=== PATIENT | female | born 1985 | race American Indian/Alaskan Native ===

== ENCOUNTER 2017-10-16 13:32 | Emergency (ER) | payer SELFPAY ==
[2017-10-16] MEDS ORDERED: NACL 0.9% 1000 ML 1,000 ML IV ONE ×2 (13:39→15:38)
[2017-10-16 14:26] LABS: Basophils % (Auto) 0.3 % (0.0-1.8); Eosinophils % (Auto) 0.2 % (0.0-4.3); Hemoglobin 13.7 gm/dl (10.1-14.3); Lymphocytes # (Auto) 1.8 K/mm3 (1.2-5.4); Lymphocytes % (Auto) 18.4 % (13.4-35.0); Mean Corpuscular HGB Conc 35 % (30-34); Mean Corpuscular Hemoglobin 30 pg (28-32); Mean Corpuscular Volume 85 fl (79-97); Monocytes # (Auto) 0.3 K/mm3 (0.0-0.8); Monocytes % (Auto) 3.5 % (0.0-7.3); Platelet Count 190 K/mm3 (140-440); Red Blood Count 4.56 M/mm3 (3.65-5.03); Red Cell Distribution Width 12.9 % (13.2-15.2)
[2017-10-16 14:33] LABS: Alanine Aminotransferase 8 units/L (7-56); Albumin 4.3 g/dL (3.9-5); BUN/Creatinine Ratio 14; Blood Urea Nitrogen 10 mg/dL (7-17); Calcium 9.4 mg/dL (8.4-10.2); Hemolysis Index 2
[2017-10-16] MEDS ORDERED: TYLENOL PO ONE (15:39)
--- NOTE | 2017-10-16 16:08 | Emergency Department Report ---
ED HPI - General Chief complaint: Abdominal Pain Stated complaint: ABD PAIN Time Seen by Provider: 10/16/17 15:35 Source: patient Mode of arrival: Ambulatory Limitations: No Limitations - History of Present Illness Initial comments: This is a 31-year-old female nontoxic, well nourished in appearance, no acute signs of distress presents to the ED with c/o of pelvic pain x2 weeks. Patient stated that on 10/07/2017 she had 1 episode of vaginal bleeding and that is when she was diagnosed with . Patient stated every since then she developed pelvic cramping and nausea with vomiting. Patient denies any abdominal pain. Patient denies any vaginal discharge or foul odor. Patient currently in the ED denies any vaginal bleeding. Patient denies any nausea, vomiting, chest pain, shortness of breathe, fever, chills, headache, stiff neck , numbness, tingling. Patient denies any urinary symptoms. Patient denies any allergies or PMH. MD Complaint: abdominal pain (pelvic ) -: week(s) (2) Location: pelvis Radiation: none Severity: mild Severity scale (0 -10): 3 Quality: cramping Consistency: intermittent Improves with: none Worsens with: none Associated symptoms: nausea/vomiting. denies: vaginal bleeding, vaginal discharge, abdominal pain, dysuria, headache, vision changes, malaise, dysparuenia, rash, seizure, shortness of breath, syncope, weakness Vaginal bleeding: none :: Yes Pre- care: none - Related Data Previous Rx's Medication Instructions Recorded Last Taken Type Ibuprofen [Motrin] 600 mg PO Q8H PRN #30 tablet 06/06/14 Unknown Rx Penicillin Vk [Veetids TAB] 500 mg PO QID #40 tablet 06/06/14 Unknown Rx traMADol [Ultram 50 MG tab] 50 mg PO Q6HR PRN #10 tablet 06/06/14 Unknown Rx Acetaminophen 500 mg PO Q8H PRN #30 tablet 10/16/17 Unknown Rx Metoclopramide [Reglan] 10 mg PO TID PRN #60 tab 10/16/17 Unknown Rx 21/Iron Fu/Folic Acid 1 each PO DAILY #30 tablet 10/16/17 Unknown Rx [ Complete Caplet] Allergies Allergy/AdvReac Type Severity Reaction Status Date / Time No Known Allergies Allergy Verified 10/16/17 13:36 ED Review of Systems ROS: Stated complaint: ABD PAIN Other details as noted in HPI Constitutional: denies: chills, fever Eyes: denies: eye pain, eye discharge, vision change ENT: denies: ear pain, throat pain Respiratory: denies: cough, shortness of breath, wheezing Cardiovascular: denies: chest pain, palpitations Endocrine: no symptoms reported Gastrointestinal: abdominal pain (pelvic pain). denies: nausea, diarrhea Genitourinary: denies: urgency, dysuria, discharge Musculoskeletal: denies: back pain, joint swelling, arthralgia Skin: denies: rash, lesions Neurological: denies: headache, weakness, paresthesias Psychiatric: denies: anxiety, depression Hematological/Lymphatic: denies: easy bleeding, easy bruising ED Past Medical Hx - Past Medical History Previous Medical History?: No - Surgical History Past Surgical History?: No - Social History Smoking Status: Current Every Day Smoker Substance Use Type: Alcohol, Marijuana - Medications Home Medications: Home Medications Medication Instructions Recorded Confirmed Last Taken Type Ibuprofen [Motrin] 600 mg PO Q8H PRN #30 tablet 06/06/14 Unknown Rx Penicillin Vk [Veetids TAB] 500 mg PO QID #40 tablet 06/06/14 Unknown Rx traMADol [Ultram 50 MG tab] 50 mg PO Q6HR PRN #10 tablet 06/06/14 Unknown Rx Acetaminophen 500 mg PO Q8H PRN #30 tablet 10/16/17 Unknown Rx Metoclopramide [Reglan] 10 mg PO TID PRN #60 tab 10/16/17 Unknown Rx 21/Iron Fu/Folic Acid 1 each PO DAILY #30 tablet 10/16/17 Unknown Rx [ Complete Caplet] ED Physical Exam - General Limitations: No Limitations General appearance: alert, in no apparent distress - Head Head exam: Present: atraumatic, normocephalic - Eye Eye exam: Present: normal appearance Pupils: Present: normal accommodation - ENT ENT exam: Present: normal exam, mucous membranes moist - Neck Neck exam: Present: normal inspection, full ROM. Absent: tenderness, meningismus, lymphadenopathy - Respiratory Respiratory exam: Present: normal lung sounds bilaterally. Absent: respiratory distress, wheezes, rales, rhonchi, stridor, chest wall tenderness, accessory muscle use, decreased breath sounds, prolonged expiratory - Cardiovascular Cardiovascular Exam: Present: regular rate, normal rhythm, normal heart sounds. Absent: bradycardia, tachycardia, irregular rhythm, systolic murmur, diastolic murmur, rubs, gallop - GI/Abdominal GI/Abdominal exam: Present: soft, normal bowel sounds. Absent: distended, tenderness, guarding, rebound, rigid, diminished bowel sounds - Expanded GI/Abdominal Exam Expanded GI/Abdominal exam: Absent: psoas sign, obturator sign, heel tap sign, Rider's sign, Rovsing's sign, tenderness at Mcburney's Point, ascites - Extremities Exam Extremities exam: Present: normal inspection, full ROM, normal capillary refill. Absent: tenderness, joint swelling - Back Exam Back exam: Present: normal inspection, full ROM. Absent: tenderness, CVA tenderness (R), CVA tenderness (L), muscle spasm, paraspinal tenderness, vertebral tenderness, rash noted - Neurological Exam Neurological exam: Present: alert, oriented X3, normal gait - Psychiatric Psychiatric exam: Present: normal affect, normal mood - Skin Skin exam: Present: warm, dry, intact, normal color. Absent: rash ED Course Vital Signs 10/16/17 13:36 Temperature 98.4 F Pulse Rate 90 Respiratory 18 Rate Blood Pressure 93/65 O2 Sat by Pulse 100 Oximetry - Reevaluation(s) Reevaluation #1: 10/16/17 16:47 Patient is speaking in full sentences with no signs of distress noted. ED Medical Decision Making - Lab Data Result diagrams: 10/16/17 14:04 10/16/17 14:04 - Medical Decision Making This is a 31-year-old female presents with induced pelvic cramping. Patient is stable and was examined by me. Normal abdominal exam. US OB obtained and dictated by the radiologist. Quantative serum test obtained. Patient notified of the US report with no questions noted by the patient. Patient received 1L of normal saline and Reglan which patient stated symptioms of nausea and vomiting subsided. A PO challenge obtained and patient tolerated well with no nausea or vomiting noted. Labs within normal limits. Patient was referred to Follow-up with a [facility] in 3-5 days or if symptoms worsen and continue return to emergency room as soon as possible. At time of discharge, the patient does not seem toxic or ill in appearance. No acute signs of distress noted. Patient agrees to discharge treatment plan of care. No further questions noted by the patient. Critical care attestation.: If time is entered above; I have spent that time in minutes in the direct care of this critically ill patient, excluding procedure time. ED Disposition Clinical Impression: related pelvic pain in first trimester, antepartum Disposition: TO HOME OR SELFCARE Is pt being admited?: No Does the pt Need Aspirin: No Condition: Stable Instructions: (ED) Additional Instructions: Follow-up with a [facility] doctor in 3-5 days or if symptoms worsen and continue return to emergency room as soon as possible. Prescriptions: Acetaminophen 500 mg PO Q8H PRN #30 tablet PRN Reason: pain Metoclopramide [Reglan] 10 mg PO TID PRN #60 tab PRN Reason: Nausea 21/Iron Fu/Folic Acid [ Complete Caplet] 1 each PO DAILY #30 tablet Referrals: PRIMARY CAREMD [Primary Care Provider] - 3-5 Days HELENA REHMAN MD [Staff Physician] - 3-5 Days [facility] [Provider Group] - 3-5 Days [facility] [Outside] - 3-5 Days Forms: Work/School Release Form(ED)
--- NOTE | 2017-10-16 16:42 | Ultrasound Report ---
FINAL REPORT EXAM: US OB < = 14 WEEKS FETUS HISTORY: abd pain COMPARISON: None available. TECHNIQUE: Several real-time grayscale and color Doppler images were obtained. Transabdominal and transvaginal exam. FINDINGS: Uterus measures 10.6 x 5.2 x 6.6 centimeters. There is a single live IUP. Estimated gestational age 6 weeks 5 days. Estimated delivery date June 06, 2018. heart rate 131 beats per minute. The right ovary measures 4.2 x 2.2 x 3.1 centimeters. Left ovary measures 2.3 x 2.1 x 2.9 centimeters. There is vascular flow to the bilateral ovaries. Within the right ovary there is a 2.1 x 1.5 x 2.1 centimeter isoechoic avascular structure which may reflect corpus luteum. There is a 2 millimeter calcification in the left ovary. No adnexal masses are demonstrated. Trace fluid in the pelvis. Cervix is closed. IMPRESSION: Single live IUP. Estimated gestational age 6 weeks 5 days. Estimated delivery date June 06, 2018. 2.1 centimeter isoechoic avascular structure in the right ovary which may reflect corpus luteum. No adnexal masses are demonstrated.
[2017-10-16] MEDS ORDERED: REGLAN IV ONE (17:07)
[2017-10-16 18:38] VITALS: BP 146/42
== END 2017-10-16 18:37 | disposition home or self-care (01) ==
LOC: ED 13:32
DX: O26.891 Other specified pregnancy related conditions, first trimester (principal); R10.2 Pelvic and perineal pain; O99.331 Smoking (tobacco) complicating pregnancy, first trimester; F12.10 Cannabis abuse, uncomplicated; Z3A.01 Less than 8 weeks gestation of pregnancy
CPT/HCPCS: 36415; 76801; 76817; 80053; 84702; 85025; 96361; 96374; 99284; J2765; J7030

== ENCOUNTER 2018-10-14 09:32 | Emergency (ER) | payer SELFPAY ==
[2018-10-14 09:43] VITALS: BP 126/32
--- NOTE | 2018-10-14 10:17 | Emergency Department Report ---
ED Female HPI - General Chief complaint: Abdominal Pain Stated complaint: ABD PAIN Time Seen by Provider: 10/14/18 10:12 Source: patient Mode of arrival: Ambulatory Limitations: No Limitations - History of Present Illness Initial comments: Patient is 32 years old female with no significant past medical history except for ectopic . Patient presented to the ER complaining of left lower quadrant pain started 2 days ago. Patient stated that she missed her period this month. She denied any vaginal bleeding or vaginal discharge. Patient st ated that she is having dysuria and increased urinary frequency. MD Complaint: pelvic pain - Related Data Previous Rx's Medication Instructions Recorded Last Taken Type Ibuprofen [Motrin] 600 mg PO Q8H PRN #30 tablet 06/06/14 Unknown Rx Penicillin Vk [Veetids TAB] 500 mg PO QID #40 tablet 06/06/14 Unknown Rx traMADol [Ultram 50 MG tab] 50 mg PO Q6HR PRN #10 tablet 06/06/14 Unknown Rx Acetaminophen 500 mg PO Q8H PRN #30 tablet 10/16/17 Unknown Rx Metoclopramide [Reglan] 10 mg PO TID PRN #60 tab 10/16/17 Unknown Rx 21/Iron Fu/Folic Acid 1 each PO DAILY #30 tablet 10/16/17 Unknown Rx [ Complete Caplet] Allergies Allergy/AdvReac Type Severity Reaction Status Date / Time No Known Allergies Allergy Verified 10/16/17 13:36 ED Review of Systems ROS: Stated complaint: ABD PAIN Other details as noted in HPI Comment: All other systems reviewed and negative Constitutional: denies: chills, fever Respiratory: denies: cough, orthopnea, shortness of breath, SOB with exertion Cardiovascular: denies: chest pain Gastrointestinal: abdominal pain. denies: nausea, vomiting Genitourinary: dysuria, frequency Neurological: denies: headache, weakness ED Past Medical Hx - Social History Smoking Status: Current Every Day Smoker Substance Use Type: Alcohol, Marijuana - Medications Home Medications: Home Medications Medication Instructions Recorded Confirmed Last Taken Type Ibuprofen [Motrin] 600 mg PO Q8H PRN #30 tablet 06/06/14 Unknown Rx Penicillin Vk [Veetids TAB] 500 mg PO QID #40 tablet 06/06/14 Unknown Rx traMADol [Ultram 50 MG tab] 50 mg PO Q6HR PRN #10 tablet 03/12/15 Unknown Rx Acetaminophen 500 mg PO Q8H PRN #30 tablet 10/16/17 Unknown Rx Metoclopramide [Reglan] 10 mg PO TID PRN #60 tab 10/16/17 Unknown Rx 21/Iron Fu/Folic Acid 1 each PO DAILY #30 tablet 10/16/17 Unknown Rx [ Complete Caplet] ED Physical Exam - General Limitations: No Limitations General appearance: alert, in no apparent distress - Head Head exam: Present: atraumatic, normocephalic, normal inspection - ENT ENT exam: Present: normal exam, normal orophraynx - Neck Neck exam: Present: normal inspection - Respiratory Respiratory exam: Present: normal lung sounds bilaterally - Cardiovascular Cardiovascular Exam: Present: normal heart sounds - GI/Abdominal GI/Abdominal exam: Present: soft, normal bowel sounds. Absent: distended, tenderness, guarding, rebound, rigid, organomegaly, mass, bruit, pulsatile mass, hernia - Extremities Exam Extremities exam: Present: normal inspection, full ROM, normal capillary refill - Neurological Exam Neurological exam: Present: alert, oriented X3, CN II-XII intact - Skin Skin exam: Present: warm, intact, normal color ED Course Vital Signs 10/14/18 09:41 Temperature 98.3 F Pulse Rate 58 L Respiratory 16 Rate Blood Pressure 126/32 O2 Sat by Pulse 100 Oximetry ED Medical Decision Making - Lab Data Result diagrams: 10/14/18 10:07 10/14/18 10:07 - Medical Decision Making Patient is 32 years old female with no significant past medical history except for ectopic . Patient presented to the ER complaining of left lower quadrant pain started 2 days ago. Patient stated that she missed her period this month. She denied any vaginal bleeding or vaginal discharge. Patient stated that she is having dysuria and increased urinary frequency. Patient labs reviewed and is unremarkable. test is negative. Patient is in no acute distress. Abdomen is soft nontender. No evidence of acute abdomen. Patient advised to follow-up with her primary care physician in the next 2-3 days and to return to the ER if symptoms are not improved. Critical care attestation.: If time is entered above; I have spent that time in minutes in the direct care of this critically ill patient, excluding procedure time. ED Disposition Clinical Impression: Abdominal pain Disposition: DC-01 TO HOME OR SELFCARE Is pt being admited?: No Condition: Stable Instructions: Abdominal Pain (ED) Referrals: SHAE TALAVERA MD [Primary Care Provider] - 3-5 Days
[2018-10-14 10:23] LABS: Bilirubin,Urine NEG (Negative); Blood,Urine NEG (Negative); Color,Urine Straw (Yellow); Mucus,Urine FEW /HPF; Protein,Urine <15 mg/dL mg/dL (Negative); Urobilinogen,Urine < 2.0 mg/dL (<2.0)
[2018-10-14 10:26] LABS: Basophils % (Auto) 0.4 % (0.0-1.8); Eosinophils % (Auto) 0.8 % (0.0-4.3); Hematocrit 39.1 % (30.3-42.9); Hemoglobin 13.3 gm/dl (10.1-14.3); Lymphocytes # (Auto) 1.6 K/mm3 (1.2-5.4); Lymphocytes % (Auto) 36.6 % (13.4-35.0); Mean Corpuscular HGB Conc 34 % (30-34); Mean Corpuscular Hemoglobin 29 pg (28-32); Mean Corpuscular Volume 86 fl (79-97); Monocytes # (Auto) 0.3 K/mm3 (0.0-0.8); Monocytes % (Auto) 6.1 % (0.0-7.3); Platelet Count 132 K/mm3 (140-440); Red Blood Count 4.55 M/mm3 (3.65-5.03); Red Cell Distribution Width 14.7 % (13.2-15.2)
[2018-10-14 10:42] LABS: HCG Qualitative,Urine Negative (Negative)
[2018-10-14 10:50] LABS: BUN/Creatinine Ratio 23; Blood Urea Nitrogen 16 mg/dL (7-17); Calcium 8.9 mg/dL (8.4-10.2); Hemolysis Index 34
== END 2018-10-14 12:13 | disposition home or self-care (01) ==
LOC: ED 09:32
DX: R10.32 Left lower quadrant pain (principal); F17.200 Nicotine dependence, unspecified, uncomplicated; F12.10 Cannabis abuse, uncomplicated
CPT/HCPCS: 36415; 80048; 81001; 81025; 84703; 85025

== ENCOUNTER 2020-12-02 12:30 | Emergency (ER) | payer SELFPAY ==
[2020-12-02 13:07] VITALS: BP 109/60
--- NOTE | 2020-12-02 13:52 | Emergency Department Report ---
ED Abdominal Pain HPI - General Chief Complaint: Abdominal Pain Stated Complaint: TEMP/STOMACH PAIN Time Seen by Provider: 12/02/20 13:28 Source: patient Mode of arrival: Ambulatory Limitations: No Limitations - History of Present Illness Initial Comments: Patient is a 34-year-old female presents emergency room complaints of left lower quadrant abdominal pain that began a week ago. She states that the for the last 3 days she has also had a fever. She states that she took ibuprofen this morning around 8 or 9 AM. Patient states that she also been having diarrhea and urinary frequency. She denies any nausea, vomiting, hematochezia, melena, hematemesis, abnormal vaginal discharge, cough, shortness of breath, chest pain. PMHx ovarian cyst. No allergies to medications. She has a past abdominal surgical history of x2. Severity scale (0 -10): 9 - Related Data Previous Rx's Medication Instructions Recorded Last Taken Type Ibuprofen [Motrin] 600 mg PO Q8H PRN #30 tablet 06/06/14 Unknown Rx Penicillin Vk [Veetids TAB] 500 mg PO QID #40 tablet 06/06/14 Unknown Rx traMADoL [Ultram 50 MG tab] 50 mg PO Q6HR PRN #10 tablet 06/06/14 Unknown Rx Acetaminophen 500 mg PO Q8H PRN #30 tablet 10/16/17 Unknown Rx Metoclopramide [Reglan] 10 mg PO TID PRN #60 tab 10/16/17 Unknown Rx 21/Iron Fu/Folic Acid 1 each PO DAILY #30 tablet 10/16/17 Unknown Rx [ Complete Caplet] Naproxen [Naprosyn] 500 mg PO BID #14 tablet 10/14/18 Unknown Rx Acetaminophen/Codeine [Tylenol 1 tab PO Q6H PRN #10 tab 12/02/20 Unknown Rx /Codeine # 3 tab] Ondansetron [Zofran Odt] 4 mg PO Q8HR PRN #10 tab.rapdis 12/02/20 Unknown Rx cephALEXin [Keflex] 500 mg PO BID 10 Days #20 capsule 12/02/20 Unknown Rx Allergies Allergy/AdvReac Type Severity Reaction Status Date / Time No Known Allergies Allergy Verified 10/16/17 13:36 ED Review of Systems ROS: Stated complaint: TEMP/STOMACH PAIN Other details as noted in HPI Comment: All other systems reviewed and negative ED Past Medical Hx - Social History Smoking Status: Current Every Day Smoker Substance Use Type: Alcohol, Marijuana - Medications Home Medications: Home Medications Medication Instructions Recorded Confirmed Last Taken Type Ibuprofen [Motrin] 600 mg PO Q8H PRN #30 tablet 06/06/14 Unknown Rx Penicillin Vk [Veetids TAB] 500 mg PO QID #40 tablet 06/06/14 Unknown Rx traMADoL [Ultram 50 MG tab] 50 mg PO Q6HR PRN #10 tablet 06/06/14 Unknown Rx Acetaminophen 500 mg PO Q8H PRN #30 tablet 10/16/17 Unknown Rx Metoclopramide [Reglan] 10 mg PO TID PRN #60 tab 10/16/17 Unknown Rx 21/Iron Fu/Folic Acid 1 each PO DAILY #30 tablet 10/16/17 Unknown Rx [ Complete Caplet] Naproxen [Naprosyn] 500 mg PO BID #14 tablet 10/14/18 Unknown Rx Acetaminophen/Codeine [Tylenol 1 tab PO Q6H PRN #10 tab 12/02/20 Unknown Rx /Codeine # 3 tab] Ondansetron [Zofran Odt] 4 mg PO Q8HR PRN #10 tab.rapdis 12/02/20 Unknown Rx cephALEXin [Keflex] 500 mg PO BID 10 Days #20 capsule 12/02/20 Unknown Rx ED Physical Exam - General Limitations: No Limitations General appearance: alert, in no apparent distress - Head Head exam: Present: atraumatic, normocephalic - Eye Eye exam: Present: normal appearance - ENT ENT exam: Present: mucous membranes moist - Respiratory Respiratory exam: Present: normal lung sounds bilaterally. Absent: respiratory distress, wheezes, rales, rhonchi, stridor, chest wall tenderness, accessory muscle use, decreased breath sounds, prolonged expiratory - Cardiovascular Cardiovascular Exam: Present: regular rate, normal rhythm, normal heart sounds. Absent: systolic murmur, diastolic murmur, rubs, gallop - GI/Abdominal GI/Abdominal exam: Present: soft, tenderness (LLQ), normal bowel sounds. Absent: distended, guarding, rebound, rigid - Neurological Exam Neurological exam: Present: alert, oriented X3 - Psychiatric Psychiatric exam: Present: normal affect, normal mood - Skin Skin exam: Present: warm, dry, intact ED Course Vital Signs 12/02/20 13:06 Temperature 98.2 F Pulse Rate 74 Respiratory 16 Rate Blood Pressure 109/60 [Left] O2 Sat by Pulse 100 Oximetry ED Medical Decision Making - Lab Data Result diagrams: 12/02/20 13:57 12/02/20 13:57 Lab Results 12/02/20 12/02/20 12/02/20 Range/Units 13:57 13:57 13:57 WBC 11.2 H (4.5-11.0) K/mm3 RBC 4.86 (3.65-5.03) M/mm3 Hgb 14.3 (10.1-14.3) gm/dl Hct 41.3 (30.3-42.9) % MCV 85 (79-97) fl MCH 29 (28-32) pg MCHC 35 H (30-34) % RDW 13.5 (13.2-15.2) % Plt Count 175 (140-440) K/mm3 Add Manual Diff Complete Total Counted 100 Seg Neuts % (Manual) 74.0 H (40.0-70.0) % Band Neutrophils % 3.0 % Lymphocytes % (Manual) 18.0 (13.4-35.0) % Monocytes % (Manual) 5.0 (0.0-7.3) % Nucleated RBC % Not Reportable Seg Neutrophils # Man 8.3 H (1.8-7.7) K/mm3 Band Neutrophils # 0.3 K/mm3 Lymphocytes # (Manual) 2.0 (1.2-5.4) K/mm3 Abs React Lymphs (Man) 0.0 K/mm3 Monocytes # (Manual) 0.6 (0.0-0.8) K/mm3 Eosinophils # (Manual) 0.0 (0.0-0.4) K/mm3 Basophils # (Manual) 0.0 (0.0-0.1) K/mm3 Metamyelocytes # 0.0 K/mm3 Myelocytes # 0.0 K/mm3 Promyelocytes # 0.0 K/mm3 Blast Cells # 0.0 K/mm3 WBC Morphology Not Reportable Hypersegmented Neuts Not Reportable Hyposegmented Neuts Not Reportable Hypogranular Neuts Not Reportable Smudge Cells Not Reportable Toxic Granulation Not Reportable Toxic Vacuolation Not Reportable Dohle Bodies Not Reportable Pelger-Huet Anomaly Not Reportable Iris Rods Not Reportable Platelet Estimate Consistent w auto Clumped Platelets Not Reportable Plt Clumps, EDTA Not Reportable Large Platelets Not Reportable Giant Platelets Not Reportable Platelet Satelliting Not Reportable Plt Morphology Comment Not Reportable RBC Morphology Normal Dimorphic RBCs Not Reportable Polychromasia Not Reportable Hypochromasia Not Reportable Poikilocytosis Not Reportable Anisocytosis Not Reportable Microcytosis Not Reportable Macrocytosis Not Reportable Spherocytes Not Reportable Pappenheimer Bodies Not Reportable Sickle Cells Not Reportable Target Cells Not Reportable Tear Drop Cells Not Reportable Ovalocytes Not Reportable Helmet Cells Not Reportable Avelar-[place] Bodies Not Reportable [place] Rings Not Reportable Elizabeth Cells Not Reportable Bite Cells Not Reportable Crenated Cell Not Reportable Elliptocytes Not Reportable Acanthocytes (Spur) Not Reportable Rouleaux Not Reportable Hemoglobin C Crystals Not Reportable Schistocytes Not Reportable Malaria parasites Not Reportable Olivier Bodies Not Reportable Hem Pathologist Commnt No Sodium 133 L (137-145) mmol/L Potassium 3.6 (3.6-5.0) mmol/L Chloride 94.1 L (98-107) mmol/L Carbon Dioxide 28 (22-30) mmol/L Anion Gap 15 mmol/L BUN 12 (7-17) mg/dL Creatinine 0.9 (0.6-1.2) mg/dL Estimated GFR > 60 ml/min BUN/Creatinine Ratio 13 % Glucose 103 H (65-100) mg/dL Calcium 9.2 (8.4-10.2) mg/dL Total Bilirubin 1.30 H (0.1-1.2) mg/dL AST 44 H (5-40) units/L ALT 30 (7-56) units/L Alkaline Phosphatase 142 H (35-129) units/L Total Protein 8.7 H (6.3-8.2) g/dL Albumin 3.9 (3.9-5) g/dL Albumin/Globulin Ratio 0.8 % Lipase 20 (13-60) units/L HCG, Qual Negative (Negative) Urine Color (Yellow) Urine Turbidity (Clear) Urine pH (5.0-7.0) Ur Specific [place] (1.003-1.030) Urine Protein (Negative) mg/dL Urine Glucose (UA) (Negative) mg/dL Urine Ketones (Negative) mg/dL Urine Blood (Negative) Urine Nitrite (Negative) Urine Bilirubin (Negative) Urine Urobilinogen (<2.0) mg/dL Ur Leukocyte Esterase (Negative) Urine WBC (Auto) (0.0-6.0) /HPF Urine RBC (Auto) (0.0-6.0) /HPF U Epithel Cells (Auto) (0-13.0) /HPF Urine Bacteria (Auto) (Negative) /HPF Urine Mucus /HPF 12/02/20 Range/Units 14:00 WBC (4.5-11.0) K/mm3 RBC (3.65-5.03) M/mm3 Hgb (10.1-14.3) gm/dl Hct (30.3-42.9) % MCV (79-97) fl MCH (28-32) pg MCHC (30-34) % RDW (13.2-15.2) % Plt Count (140-440) K/mm3 Add Manual Diff Total Counted Seg Neuts % (Manual) (40.0-70.0) % Band Neutrophils % % Lymphocytes % (Manual) (13.4-35.0) % Monocytes % (Manual) (0.0-7.3) % Nucleated RBC % Seg Neutrophils # Man (1.8-7.7) K/mm3 Band Neutrophils # K/mm3 Lymphocytes # (Manual) (1.2-5.4) K/mm3 Abs React Lymphs (Man) K/mm3 Monocytes # (Manual) (0.0-0.8) K/mm3 Eosinophils # (Manual) (0.0-0.4) K/mm3 Basophils # (Manual) (0.0-0.1) K/mm3 Metamyelocytes # K/mm3 Myelocytes # K/mm3 Promyelocytes # K/mm3 Blast Cells # K/mm3 WBC Morphology Hypersegmented Neuts Hyposegmented Neuts Hypogranular Neuts Smudge Cells Toxic Granulation Toxic Vacuolation Dohle Bodies Pelger-Huet Anomaly Iris Rods Platelet Estimate Clumped Platelets Plt Clumps, EDTA Large Platelets Giant Platelets Platelet Satelliting Plt Morphology Comment RBC Morphology Dimorphic RBCs Polychromasia Hypochromasia Poikilocytosis Anisocytosis Microcytosis Macrocytosis Spherocytes Pappenheimer Bodies Sickle Cells Target Cells Tear Drop Cells Ovalocytes Helmet Cells Avelar-[place] Bodies [place] Rings [place] Cells Bite Cells Crenated Cell Elliptocytes Acanthocytes (Spur) Rouleaux Hemoglobin C Crystals Schistocytes Malaria parasites Olivier Bodies Hem Pathologist Commnt Sodium (137-145) mmol/L Potassium (3.6-5.0) mmol/L Chloride (98-107) mmol/L Carbon Dioxide (22-30) mmol/L Anion Gap mmol/L BUN (7-17) mg/dL Creatinine (0.6-1.2) mg/dL Estimated GFR ml/min BUN/Creatinine Ratio % Glucose (65-100) mg/dL Calcium (8.4-10.2) mg/dL Total Bilirubin (0.1-1.2) mg/dL AST (5-40) units/L ALT (7-56) units/L Alkaline Phosphatase (35-129) units/L Total Protein (6.3-8.2) g/dL Albumin (3.9-5) g/dL Albumin/Globulin Ratio % Lipase (13-60) units/L HCG, Qual (Negative) Urine Color Yellow (Yellow) Urine Turbidity Cloudy (Clear) Urine pH 5.0 (5.0-7.0) Ur Specific [place] 1.012 (1.003-1.030) Urine Protein 30 mg/dl (Negative) mg/dL Urine Glucose (UA) Neg (Negative) mg/dL Urine Ketones Neg (Negative) mg/dL Urine Blood Sm (Negative) Urine Nitrite Neg (Negative) Urine Bilirubin Neg (Negative) Urine Urobilinogen < 2.0 (<2.0) mg/dL Ur Leukocyte Esterase Lg (Negative) Urine WBC (Auto) 117.0 H (0.0-6.0) /HPF Urine RBC (Auto) 3.0 (0.0-6.0) /HPF U Epithel Cells (Auto) 23.0 H (0-13.0) /HPF Urine Bacteria (Auto) 1+ (Negative) /HPF Urine Mucus Few /HPF - Radiology Data Radiology results: report reviewed Ordering Physician: RADHA RODRIGUEZ Date of Service: 12/02/20 Procedure(s): CT abdomen pelvis w con Accession Number(s): [id number] cc: RADHA RODRIGUEZ CT ABDOMEN AND PELVIS WITH CONTRAST INDICATION / CLINICAL INFORMATION: LLQ abd pain, fever, diarrhea. TECHNIQUE: Axial CT images were obtained through the abdomen and pelvis after Omnipaque 300, [address] scans at this location are performed using CT dose reduction for ALARA by means of automated exposure control. COMPARISON: None available. FINDINGS: LOWER CHEST: No significant abnormality. LIVER: No significant abnormality. GALLBLADDER: No significant abnormality. BILE DUCTS: No significant abnormality. PANCREAS: No significant abnormality. SPLEEN: No significant abnormality. ADRENALS: No significant abnormality. RIGHT KIDNEY / URETER: Mild heterogeneity of enhancement at the upper/mid pole. LEFT KIDNEY / URETER: Mild heterogeneity of enhancement anteriorly at the midpole. STOMACH / SMALL BOWEL: No significant abnormality. COLON: No significant abnormality. APPENDIX: Nonvisualized. PERITONEUM: Mild pelvic free fluid. No free air. No fluid collection. LYMPH NODES: No significant adenopathy. VASCULAR STRUCTURES: No significant abnormality. URINARY BLADDER: No significant abnormality. REPRODUCTIVE ORGANS: No significant abnormality. ADDITIONAL FINDINGS: Multiple gluteal injection sites. SKELETAL SYSTEM: No significant abnormality. IMPRESSION: 1. Suspect pyelonephritis. No discrete abscess. 2. Mild pelvic free fluid. Signer Name: Yung Rapp MD Signed: 12/02/2020 4:36 PM Workstation Name: [id number] Transcribed By: ES Dictated By: Yung Rapp MD Electronically Authenticated By: Yung Rapp MD Signed Date/Time: 12/02/201635 DD/ 30 TD/TT: - Medical Decision Making Patient is a 34-year-old female presents emergency room complaints of left lower quadrant abdominal pain that began a week ago. She states that the for the last 3 days she has also had a fever. She states that she took ibuprofen this morning around 8 or 9 AM. Patient states that she also been having diarrhea and urinary frequency. She denies any nausea, vomiting, hematochezia, melena, hematemesis, abnormal vaginal discharge, cough, shortness of breath, chest pain. PMHx ovarian cyst. No allergies to medications. She has a past abdominal surgical history of x2. Vitals are stable. On exam patient has left lower quadrant tenderness outpatient, no guarding, no rebound, no rigidity, no pulses, no peritoneal signs. Labs with mild dehydration, mildly elevated bilirubin and AST, UA shows evidence of significant UTI, CT abdomen pelvis IV contrast 1. Suspect pyelonephritis. No discrete abscess. 2. Mild pelvic free f luid. No significant leukocytosis, she is able to tolerate p.o. intake, her pain is well controlled, patient is a candidate for outpatient pyelonephritis treatment, discussed the importance of primary care follow-up for reexamination, discussed return precautions. Patient given 1 g ceftriaxone while in the emergency department. Patient given prescription for medications. Advised patient Please take medication as prescribed. Increase your fluid intake. Follow-up with your primary care doctor to have your urine retested for clearance of bacteria. Return to emergency room for any new or worsening symptoms including but not limited to continuous vomiting, unable to tolerate by mouth intake, worsening pain, etc. Critical care attestation.: If time is entered above; I have spent that time in minutes in the direct care of this critically ill patient, excluding procedure time. ED Disposition Clinical Impression: Pyelonephritis Disposition: 01 HOME / SELF CARE / HOMELESS Is pt being admited?: No Does the pt Need Aspirin: No Condition: Stable Instructions: Pyelonephritis, Adult, Abdominal Pain (ED) Additional Instructions: Please take medication as prescribed. Increase your fluid intake. Follow-up with your primary care doctor to have your urine retested for clearance of bacteria. Return to emergency room for any new or worsening symptoms including but not limited to continuous vomiting, unable to tolerate by mouth intake, worsening pain, etc. Prescriptions: cephALEXin [Keflex] 500 mg PO BID 10 Days #20 capsule Acetaminophen/Codeine [Tylenol /Codeine # 3 tab] 1 tab PO Q6H PRN #10 tab PRN Reason: Pain , Severe (7-10) Ondansetron [Zofran Odt] 4 mg PO Q8HR PRN #10 tab.rapdis PRN Reason: nausea/vomiting Referrals: PRIMARY MD LUIS [Primary Care Provider] - 2-3 Days ALYSHA SEBASTIAN MD [Staff Physician] - 2-3 Days [facility] [Provider Group] - 2-3 Days Forms: Work/School Release Form(ED) Time of Disposition: 16:42 Print Language: LITHUANIAN
[2020-12-02 14:38] LABS: Bacteria,Urine 1+ /HPF (Negative); Bilirubin,Urine NEG (Negative); Blood,Urine SM (Negative); Color,Urine Yellow (Yellow); Mucus,Urine FEW /HPF; Urobilinogen,Urine < 2.0 mg/dL (<2.0)
[2020-12-02 15:14] LABS: Hematocrit 41.3 % (30.3-42.9); Hemoglobin 14.3 gm/dl (10.1-14.3); Mean Corpuscular HGB Conc 35 % (30-34); Mean Corpuscular Volume 85 fl (79-97); Platelet Count 175 K/mm3 (140-440); Red Blood Count 4.86 M/mm3 (3.65-5.03); Red Cell Distribution Width 13.5 % (13.2-15.2)
[2020-12-02 15:24] LABS: Alanine Aminotransferase 30 units/L (7-56); Albumin 3.9 g/dL (3.9-5); BUN/Creatinine Ratio 13; Blood Urea Nitrogen 12 mg/dL (7-17); Calcium 9.2 mg/dL (8.4-10.2); Hemolysis Index 10
[2020-12-02 16:30] LABS: Band Neutrophils # (Manual) 0.3 K/mm3; Total Cells Counted 100
[2020-12-02 16:31] LABS: Platelet Estimate Consistent w Auto; RBC Morphology Normal
[2020-12-02] MEDS ORDERED: cefTRIAXone/NS 1 GM/50 ML 1 GM/50 ML BAG IV ONE (16:41)
--- NOTE | 2020-12-02 16:41 | Cat Scan Report ---
CT ABDOMEN AND PELVIS WITH CONTRAST INDICATION / CLINICAL INFORMATION: LLQ abd pain, fever, diarrhea. TECHNIQUE: Axial CT images were obtained through the abdomen and pelvis after Omnipaque 300, 100 cc I V contrast. All CT scans at this location are performed using CT dose reduction for ALARA by means o f automated exposure control. COMPARISON: None available. FINDINGS: LOWER CHEST: No significant abnormality. LIVER: No significant abnormality. GALLBLADDER: No significant abnormality. BILE DUCTS: No significant abnormality. PANCREAS: No significant abnormality. SPLEEN: No significant abnormality. ADRENALS: No significant abnormality. RIGHT KIDNEY / URETER: Mild heterogeneity of enhancement at the upper/mid pole. LEFT KIDNEY / URETER: Mild heterogeneity of enhancement anteriorly at the midpole. STOMACH / SMALL BOWEL: No significant abnormality. COLON: No significant abnormality. APPENDIX: Nonvisualized. PERITONEUM: Mild pelvic free fluid. No free air. No fluid collection. LYMPH NODES: No significant adenopathy. VASCULAR STRUCTURES: No significant abnormality. URINARY BLADDER: No significant abnormality. REPRODUCTIVE ORGANS: No significant abnormality. ADDITIONAL FINDINGS: Multiple gluteal injection sites. SKELETAL SYSTEM: No significant abnormality. IMPRESSION: 1. Suspect pyelonephritis. No discrete abscess. 2. Mild pelvic free fluid. Signer Name: Yung Rapp MD Signed: 12/02/2020 4:36 PM Workstation Name: [id number]
== END 2020-12-02 17:31 | disposition home or self-care (01) ==
LOC: ED 12:30
DX: N12 Tubulo-interstitial nephritis, not specified as acute or chronic (principal); F17.200 Nicotine dependence, unspecified, uncomplicated; F12.90 Cannabis use, unspecified, uncomplicated; Z72.89 Other problems related to lifestyle; Z79.899 Other long term (current) drug therapy
CPT/HCPCS: 36415; 74177; 80053; 81001; 83690; 84703; 85007; 85025; 96365; 99284; J0696; Q9967